=== PATIENT | female | born 1980 | race Caucasian/White ===

== ENCOUNTER 2017-11-08 18:19 | Emergency (ER) | payer OTHER, MEDICAID, SELFPAY ==
[2017-11-08 18:27] VITALS: BP 137/88; PULSE 100; RESP 20; TEMP 37.4; O2SAT 97; BMI 29.7
--- NOTE | 2017-11-08 19:35 | ED.URI ---
HPI - URI/Sore Throat <Brooklyn Byrd PA-C - Last Filed: 11/08/17 22:22> General Chief Complaint: Upper Respiratory Symptoms Stated Complaint: SORE THROAT Time Seen by Provider: 11/08/17 19:25 Source: patient Mode of arrival: ambulatory Limitations: no limitations History of Present Illness HPI Narrative: This 37-year-old female complains of 2 day history of sore throat and laryngitis. She has also had some earache, nasal congestion, and a lot of chest congestion with some increased wheeze and dyspnea. She states she has cough with green sputum. She has not had any fever at home. She states that she does have inhaler for use when she has allergies or ill. That does seem to help briefly. She has not used it today. She states prior to this she did have some allergy symptoms with mainly watery eyes, runny nose, sneezing and some congestion. Her 17-year-old son has also had similar symptoms. She denies any possibility of stating that she is abstinent currently Related Data Allergies Allergy/AdvReac Type Severity Reaction Status Date / Time No Known Drug Allergies Allergy Verified 11/08/17 18:31 Review of Systems <Brooklyn Byrd PA-C - Last Filed: 11/08/17 22:22> Review of Systems All systems reviewed & are unremarkable except as noted in HPI and below Exam <Brooklyn Byrd PA-C - Last Filed: 11/08/17 22:22> Narrative Exam Narrative: GENERAL APPEARANCE: Patient sitting comfortably, in no distress. HEAD: No sinus TTP. EYES: PERRL, EOMI. EARS: Normal auditory canals, TMS intact with normal light reflexes. ORAL CAVITY: Normal oropharynx. THROAT: Mild erythema without exudate, PND noted NECK/THYROID: Neck supple, full range of motion, no cervical lymphadenopathy. LUNGS: Breath sounds slightly coarse without wheeze or crackles, no cough on exam HEART: RRR without murmur, nl S1, S2, no S3 or S4. DERMATOLOGIC: No exanthem Initial Vital Signs Initial Vital Signs: Vital Signs Temperature 99.3 F 11/08/17 18:27 Pulse Rate 100 H 11/08/17 18:27 Respiratory Rate 20 11/08/17 18:27 Blood Pressure 137/88 H 06/19/18 18:27 Pulse Oximetry 97 11/08/17 18:27 <Song Contreras MD - Last Filed: 11/10/17 05:35> Initial Vital Signs Initial Vital Signs: Vital Signs Temperature 99.3 F 11/08/17 18:27 Pulse Rate 100 H 11/08/17 18:27 Respiratory Rate 20 11/08/17 18:27 Blood Pressure 137/88 H 11/08/17 18:27 Pulse Oximetry 97 11/08/17 18:27 Course <Brooklyn Byrd PA-C - Last Filed: 11/08/17 22:22> Hospital Course: Following nebulizer treatment patient reported some improvement in her dyspnea and chest congestion. She was given a spacer and peak flow meter with instructions by respiratory therapist. She was started on prednisone and agreed to follow up with her PCP this week. She agree to return if acutely worse. Explained that this is most likely a virus and needs to be managed with supportive care Orders Ordered: Discontinued Medications Albuterol/Ipratropium (Duoneb) 3 ml INH NOW ONE Stop: 11/08/17 19:44 Last Admin: 11/08/17 20:07 Dose: 3 ml Lidocaine HCl (Viscous Lidocaine 2%) 15 ml PO NOW ONE Stop: 11/08/17 19:44 Last Admin: 11/08/17 20:10 Dose: 15 ml Prednisone (Deltasone 20 Mg Prepack) 1 bottle MISC SEEINSTR ONE Stop: 11/08/17 20:32 Last Admin: 11/08/17 20:42 Dose: 1 bottle Vital Signs - 8 hr 11/08/17 18:27 11/08/17 20:04 11/08/17 21:12 Temperature 99.3 F 97.6 F Pulse Rate 100 H 95 H 89 Respiratory Rate 20 19 18 Blood Pressure 137/88 H 122/76 H Blood Pressure [Left Arm] 128/72 H Pulse Oximetry 97 98 100 <Song oCntreras MD - Last Filed: 11/10/17 05:35> Orders Ordered: Discontinued Medications Albuterol/Ipratropium (Duoneb) 3 ml INH NOW ONE Stop: 11/08/17 19:44 Last Admin: 11/08/17 20:07 Dose: 3 ml Lidocaine HCl (Viscous Lidocaine 2%) 15 ml PO NOW ONE Stop: 11/08/17 19:44 Last Admin: 11/08/17 20:10 Dose: 15 ml Prednisone (Deltasone 20 Mg Prepack) 1 bottle MIS SEEINSTR ONE Stop: 11/08/17 20:32 Last Admin: 11/08/17 20:42 Dose: 1 bottle Vital Signs - 8 hr 11/08/17 18:27 11/08/17 20:04 11/08/17 21:12 Temperature 99.3 F 97.6 F Pulse Rate 100 H 95 H 89 Respiratory Rate Blood Pressure 137/88 H 122/76 H Blood Pressure [Left Arm] 128/72 H Pulse Oximetry 97 98 100 Discharge Plan Departure Patient Disposition: Home, Self-Care Clinical Impression: Upper respiratory infection, Mild intermittent reactive airways dysfunction syndrome with acute exacerbation Discharge Date/Time: 11/08/17 21:13 Interventions: ED Discharge Assessment Last Done: 11/08/17 21:12 Instructions: Amylase, DI for Asthma -- Adult, DI for Viral Upper Respiratory Infection -- Adult Activity Restrictions/Additional Instructions: I think that your infection is due to a virus, especially since your son has had similar symptoms. This tends to resolve with time, please continue your allergy medicines and your inhaler as needed and use the spacer that the respiratory therapist gave you. At [id number] decongestant such as Sudafed to your antihistamine as needed. Since you have a history of reactive airways or asthma like reactions when you get sick, I have given you some prednisone to take. You had the 1st dose tonight. Please continue to tablets daily for the next 3 days, and see your primary care provider in the next couple of days for a follow-up to make sure your breathing is improving. Please return as we talked about if you have acutely worsening symptoms Referrals: Urmila Lizama ARNP [Non-Staff] - <Song Contreras MD - Last Filed: 11/10/17 05:35> Sign Out Provider Sign Out Attestation: The PA/WIRE CHARGER functioned independently for the care of this pt, I was available, but not asked to participate in care. I am unable to determine appropriateness of management without personally examining the pt.
[2017-11-08 20:04] VITALS: BP 128/72; PULSE 95; RESP 19; O2SAT 98
[2017-11-08] MEDS: ALBUTEROL/IPRATROPIUM 3 ML AMPUL INH (20:07)
[2017-11-08] MEDS: LIDOCAINE VISCOUS 2% 15 ML SOLUTION PO (20:10)
--- NOTE | 2017-11-08 20:14 | PC.NURSE ---
0810 RT at BS for albuterol treatment. light scattered wheezes bilat per oscillation
--- NOTE | 2017-11-08 20:26 | RT ---
RT note: Pt c/o dysynea. No history of asthma, but pt states she is always short of breath, unable to take a deep breath in Nonsmoker, nondrinker. Has an inhaler at home she uses occasionally. Lungs sounds decreased. No sig wheezes appreciated. Duneb given, pt states some relief after tx. Lung sounds with improved air excursion. PEFR conducted. Pred PEFR: 480 Obs: before neb: 330, after neb 340. Pt also instructed proper MDI usage, spacer issued. Jessica tx well, no adverse effects. Report to [place].
[2017-11-08] MEDS: predniSONE 20 MG PREPACK 1 BOTTLE MISC (20:42)
[2017-11-08 21:12] VITALS: BP 122/76; PULSE 89; RESP 18; TEMP 36.4; O2SAT 100
== END 2017-11-08 21:13 | disposition home or self-care (01) ==
PROVIDERS: Emergency Provider Internal Medicine
DX: J06.9 Acute upper respiratory infection, unspecified (principal); J45.901 Unspecified asthma with (acute) exacerbation
CPT/HCPCS: 94150; 94640; 99282; 99283

== ENCOUNTER → 2019-08-23 13:05 | Outpatient (CLI) | payer OTHER, MEDICAID, SELFPAY ==
--- NOTE | 2019-08-23 | DI.US.S_ITS ---
PROCEDURE: US PARACENTESIS INDICATIONS: METASTATIC COLON CANCER TECHNIQUE: The indications, alternatives, benefits, risks, and complications of the procedure were explained to the patient. Written informed consent was obtained and placed in the chart. The abdomen and pelvis were examined sonographically, and an appropriate site was chosen for paracentesis. The skin was prepared and draped in the usual sterile fashion, and 1% lidocaine was infiltrated from the skin down through the peritoneal surface. A 19-gauge catheter-covered needle was then introduced into the peritoneal space, the catheter was advanced and the needle was withdrawn, and thereafter peritoneal fluid was withdrawn. The catheter was then removed and a dressing was applied. The fluid was discarded if the clinician did not order diagnostic testing of the fluid. COMPARISON: None. FINDINGS: Access site: Left anterolateral lower body wall. Assessment over the entire abdomen and pelvis reveals minimal access for safe paracentesis. Multiple sites of loculations are present, and what appears to be a combination of bowel loops and possible tumor infiltration in this patient with stated clinical history of metastatic colon carcinoma. Needle: One-Step centesis catheter with introducer needle. Fluid volume and description: 700 cc, thick mucinous material. Fluid sent for diagnostic testing: Not requested. Medications: 1% lidocaine for local anaesthesia. Complications: None. IMPRESSION: Successful ultrasound-guided paracentesis. As discussed the material aspirated under suction was thick, mucinous in appearance, and in the setting of multiple internal loculations and septations within the peritoneal space limiting the amount of material that could be safely accessed for paracentesis. Dictated by: Tyler Sy M.D. on 08/23/2019 at 16:25 Approved by: Tyler Sy M.D. on 08/23/2019 at 16:39
[2019-08-23 13:55] LABS: Hematocrit 33.3 % (36-46); Hemoglobin 11.1 g/dL (12.0-16.0); Mean Corpuscular HGB Conc 33.2 % (30-36); Mean Corpuscular Hemoglobin 28.3 PG (26-34); Platelet Count 117 X10^3/uL (150-400); Red Blood Cell Count 3.91 X10^6/uL (4.0-5.2); Red Cell Distribution Width 13.8 % (11.6-14.8)
[2019-08-23 13:56] LABS: INR 1.3 (0.9-1.3)
[2019-08-23 13:59] LABS: PTT Partial Thromboplastin Tim 36 SECONDS (26.4-36.2)
[2019-08-23 14:00] LABS: Alanine Aminotransferase 18 IU/L (<35); Albumin 3.8 g/dL (3.5-5.0); Alkaline Phosphatase 86 U/L (38-126); Aspartate Aminotransferase 41 IU/L (14-36); BUN Creatinine Ratio 10.2 (6-22); Bilirubin Total 0.7 mg/dL (0.2-1.3); Blood Urea Nitrogen 6 mg/dL (7-17); Calcium 8.8 mg/dL (8.4-10.2); Carbon Dioxide 27 mmol/L (22-32); Chloride 98 mmol/L (98-107); Estimated Glomerular Filt Rate > 60.0 mL/min (>60); Globulin 3.7 g/dL (1.7-4.1); Glucose 109 mg/dL (70-100); HEMOLYSIS < 15 (0-50); Potassium 3.7 mmol/L (3.4-5.1); Sodium 133 mmol/L (137-145); Total Protein 7.5 g/dL (6.3-8.2)
[2019-08-23 14:02] LABS: White Blood Cell Count 1.2 X10^3/uL (4.5-11.0)
[2019-08-23 14:23] LABS: Hypersegmented Neutrophils 1+; Neutrophils Absolute Manual 648 /uL (3000-5900); RBC Morphology Normal Morphology; Total Cells Counted 50
== END ==
PROVIDERS: PCP Nurse Practitioner Gerontology; Referring Provider Internal Medicine Hematology & Oncology; Visit Provider Internal Medicine Hematology & Oncology
DX: C18.9 Malignant neoplasm of colon, unspecified (principal)
CPT/HCPCS: 36415; 49083; 80053; 85025; 85610; 85730